=== PATIENT | male | born 1990 | race Asian ===

== ENCOUNTER 2017-10-19 02:44 | Emergency (ER) | payer SELFPAY ==
[~2017-10-19] VITALS: Ht 170.2 cm; Wt 72.6 kg
[2017-10-19 03:08] VITALS: BP 150/92
[2017-10-19] MEDS ORDERED: cefTRIAXone SOD 1,000 MG VL ONE (03:12)
[2017-10-19] MEDS ORDERED: cefTRIAXone W LIDOCAINE 1 GM IM IM ONE (03:15)
[2017-10-19] MEDS ORDERED: HYDROcodone-ACET 5/325MG TAB PO ONE (03:15)
== END 2017-10-19 04:58 ==
LOC: EDBD 02:44 → ER 02:53
DX: S61.412A Laceration without foreign body of left hand, initial encounter (principal); S40.812A Abrasion of left upper arm, initial encounter; F10.120 Alcohol abuse with intoxication, uncomplicated; F17.210 Nicotine dependence, cigarettes, uncomplicated; V49.49XA Driver injured in collision with other motor vehicles in traffic accident, initial encounter; Y93.89 Activity, other specified; Y99.8 Other external cause status; Y92.410 Unspecified street and highway as the place of occurrence of the external cause
CPT/HCPCS: 73130; 96372; 99284; J0696